=== PATIENT | male | born 1955 | race African-American/Black ===

== ENCOUNTER 2018-04-10 10:38 | Emergency (ER) | payer OTHER ==
[~2018-04-10] VITALS: Ht 170.2 cm; Wt 61.2 kg
[~2018-04-10 10:38] MED LIST: CIPR500T94 PO; PRED-220 PO
[2018-04-10 10:43] VITALS: BP 137/84
[2018-04-10] MEDS ORDERED: METH4TAB2 PO (10:59)
[2018-04-10] MEDS ORDERED: HYDROcodone/APAP 5/325MG 1 TAB TABLET PO ONE (11:00)
--- NOTE | 2018-04-10 11:00 | PHYS DOC ---
Past Medical History Past Medical History: No Pertinent History Past Surgical History: Appendectomy, Other Additional Past Surgical Histo: hernia repair Alcohol Use: Occasionally Drug Use: None Adult General Chief Complaint Chief Complaint: HIP PAIN HPI HPI Patient is a 63 year old male who presents with pain to his left hip that began approximately one week ago. The patient is been taking [id number] medications with no relief of this pain. He denies spontaneous loss of bowel or bladder, saddle numbness or foot drop. He denies any injury. Review of Systems Review of Systems Constitutional: Denies fever or chills [] Respiratory: Denies cough or shortness of breath [] Cardiovascular: No additional information not addressed in HPI [] GI: Denies abdominal pain, nausea, vomiting, bloody stools or diarrhea [] : Denies dysuria or hematuria [] Musculoskeletal: See history of present illness Integument: Denies rash or skin lesions [] Neurologic: Denies headache, focal weakness or sensory changes [] Endocrine: Denies polyuria or polydipsia [] All other systems were reviewed and found to be within normal limits, except as documented in this note. Current Medications Current Medications Current Medications Medications (Trade) Dose Ordered Sig/Tera Start Time Stop Time Status Last Admin Dose Admin Acetaminophen/ Hydrocodone Bitart (Lortab 5/325) 1 tab 1X ONCE 04/10/18 11:00 04/10/18 11:02 DC 04/10/18 11:03 1 TAB Allergies Allergies Allergies Coded Allergies Type Severity Reaction Last Updated Verified No Known Drug Allergies 09/21/15 No Physical Exam Physical Exam Constitutional: Well developed, well nourished, no acute distress, non-toxic appearance. [] Cardiovascular:Heart rate regular rhythm, no murmur [] Lungs & Thorax: Bilateral breath sounds clear to auscultation [] Abdomen: Bowel sounds normal, soft, no tenderness, no masses, no pulsatile masses. [] Skin: Warm, dry, no erythema, no rash. [] Back: tenderness to left sciatic joint radiating through his buttock into his leg, no spinal tenderness or gross deformities noted, no CVA tenderness. [] Extremities: No tenderness, no cyanosis, no clubbing, ROM intact, no edema. [] Neurologic: Alert and oriented X 3, normal motor function, normal sensory function, no focal deficits noted. [] Psychologic: Affect normal, judgement normal, mood normal. [] Current Patient Data Vital Signs Vital Signs Date Time Temp Pulse Resp B/P (MAP) Pulse Ox O2 Delivery O2 Flow Rate FiO2 04/10/18 11:03 18 98 Room Air 04/10/18 10:43 97.9 90 137/84 (101) 97.9 EKG EKG [] Radiology/Procedures Radiology/Procedures [] Course & Med Decision Making Course & Med Decision Making Pertinent Labs and Imaging studies reviewed. (See chart for details) [] Dragon Disclaimer Dragon Disclaimer This electronic medical record was generated, in whole or in part, using a voice recognition dictation system. Departure Departure Impression: Primary Impression: Sciatica Disposition: HOME, SELF-CARE Condition: STABLE Referrals: NO PCP (PCP) Patient Instructions: Sciatica Additional Instructions: Take the medication as directed with food on your stomach. Follow-up with your primary care provider in 4 days if not improving or return to the emergency department if worsening. Scripts Methylprednisolone (MEDROL) 4 Mg Tab.ds.pk 1 PKG PO UD, #1 PKG Prov: GAMAL WIGGINS APRN 04/10/18 GAMAL WIGGINS APRN Apr 10, 2018 11:00
== END 2018-04-10 11:20 | disposition home or self-care (01) ==
LOC: ER 10:38
DX: M54.32 Sciatica, left side (principal); Z79.891 Long term (current) use of opiate analgesic; Z90.49 Acquired absence of other specified parts of digestive tract
CPT/HCPCS: 99283

== ENCOUNTER 2018-04-20 11:16 | Emergency (ER) | payer OTHER ==
[~2018-04-20] VITALS: Ht 175.3 cm; Wt 61.2 kg
[~2018-04-20 11:16] MED LIST changes: +METH4TAB2 PO
[2018-04-20 11:24] VITALS: BP 134/83
[2018-04-20] MEDS ORDERED: METH-37 PO (11:38)
[2018-04-20] MEDS ORDERED: TRAM50TA PO (11:38)
--- NOTE | 2018-04-20 11:39 | PHYS DOC ---
Past Medical History Past Medical History: No Pertinent History Past Surgical History: Appendectomy, Other Additional Past Surgical Histo: hernia repair; spleenectomy Alcohol Use: Occasionally Drug Use: None Adult General Chief Complaint Chief Complaint: HIP PAIN HPI HPI Patient is a 63 year old male with history of COPD, current smoker, who presents today complaining of 9 out of 10 left hip pain radiating to the left lower extremity that has been going on for 3 weeks. Patient denies any known injury. He states his pain is worse on weight-bearing. His describes the pain as throbbing and intermittent. He states he was seen in the ED 1 week ago for the same complaint. He states he was put on steroids which did not help with this pain. Patient denies any loss of bowel/bladder function. Review of Systems Review of Systems Constitutional: Denies fever or chills [] GI: Denies abdominal pain, nausea, vomiting, bloody stools or diarrhea [] : Denies dysuria or hematuria [] Musculoskeletal: Left hip pain radiating to the left lower extremity Integument: Denies rash or skin lesions [] Neurologic: Denies headache, focal weakness or sensory changes [] All other systems were reviewed and found to be within normal limits, except as documented in this note. Allergies Allergies Allergies Coded Allergies Type Severity Reaction Last Updated Verified No Known Drug Allergies 09/21/15 No Physical Exam Physical Exam Constitutional: thin appearing, no acute distress, non-toxic appearance. [] Abdomen: Bowel sounds normal, soft, no tenderness, no masses, no pulsatile masses. [] Skin: Warm, dry, no erythema, no rash. [] Back: Tenderness on palpation of the left SI joint, no midline lumbar spine tenderness, no CVA tenderness. [] Extremities: No tenderness, no cyanosis, no clubbing, ROM intact, no edema. [] Neurologic: Alert and oriented X 3, normal motor function, normal sensory function, no focal deficits noted. [] Psychologic: Affect normal, judgement normal, mood normal. [] EKG EKG [] Radiology/Procedures Radiology/Procedures [] Course & Med Decision Making Course & Med Decision Making Pertinent Labs and Imaging studies reviewed. (See chart for details) This is a 63-year-old male patient presenting to the ED today with pain suspicious of sciatica symptoms have been going on for 3 weeks. No known injury. Parent and radius to the left lower extremity from the hip. Patient was in the ED a week ago, was discharged on steroids, has been taking over-the- counter medications as well. No relief. He has no cauda equina syndrome symptoms. Will be discharged with tramadol, Robaxin and provided a primary care doctor list for follow-up, he states his PCP retired. [place] Disclaimer Dragon Disclaimer This electronic medical record was generated, in whole or in part, using a voice recognition dictation system. Departure Departure Impression: Primary Impression: Sciatica of left side Disposition: HOME, SELF-CARE Condition: STABLE Referrals: NO PCP (PCP) Follow-up in 1-2 weeks Patient Instructions: Sciatica, [id number] Additional Instructions: You were evaluated in the emergency room with symptoms of sciatica. Apply heat to your back/hip. Take the prescribed medications as ordered. Follow-up with the primary care doctor from the list provided as soon as you can. Come back to the emergency room at any point symptoms worsen. Scripts Tramadol Hcl (TRAMADOL HCL) 50 Mg Tablet 50 MG PO Q6HRS PRN for PAIN, #30 TAB Prov: CHARLIE WASHINGTON APRN 04/20/18 Methocarbamol (ROBAXIN) 500 Mg Tablet 1 TAB PO TID, #30 TAB Prov: CHARLIE WASHINGTON APRN 04/20/18 CHARLIE WASHINGTON APRN Apr 20, 2018 11:39
== END 2018-04-20 11:46 | disposition home or self-care (01) ==
LOC: ER 11:16
DX: M54.32 Sciatica, left side (principal); Z90.89 Acquired absence of other organs; Z90.81 Acquired absence of spleen; Z98.890 Other specified postprocedural states
CPT/HCPCS: 99283